=== PATIENT | male | born 2005 | race Hispanic/Latino ===

== ENCOUNTER 2025-05-14 23:35 | Emergency (ER) | payer OTHER ==
[~2025-05-14] VITALS: Ht 172.7 cm; Wt 76.2 kg
[2025-05-14 23:37] VITALS: TEMP 98.7
[2025-05-14] MEDS: IBUPROFEN 600 MG TAB PO STA (23:56)
[2025-05-14] MEDS: ACETAMINOPHEN 325 MG TAB PO ONE (23:56)
[2025-05-15 02:22] VITALS: PULSE 78; RESP 20
[2025-05-15 02:40] VITALS: BP 122/65; PULSE 75; RESP 16; O2SAT 100
== END 2025-05-15 02:41 | disposition home or self-care (01) ==
LOC: ER 23:48
DX: M25.571 Pain in right ankle and joints of right foot (principal); M25.471 Effusion, right ankle; S93.491A Sprain of other ligament of right ankle, initial encounter; X50.1XXA Overexertion from prolonged static or awkward postures, initial encounter; Y93.B9 Activity, other involving muscle strengthening exercises; Y92.89 Other specified places as the place of occurrence of the external cause
CPT/HCPCS: 99284